=== PATIENT | female | born 1985 | race Caucasian/White ===

== ENCOUNTER 2018-08-30 09:27 | Emergency (ER) | payer MEDICAID ==
[~2018-08-30] VITALS: Ht 167.6 cm; Wt 87.2 kg
[~2018-08-30 09:27] MED LIST: ETON68IM3 SQ
[2018-08-30 09:36] VITALS: BP 131/85
[2018-08-30] MEDS ORDERED: ibuprofen tablet 400 MG TABLET PO ONE (10:10)
[2018-08-30] MEDS ORDERED: acetaminophen 325mg tablet PO ONE (10:10)
== END 2018-08-30 10:49 | disposition home or self-care (01) ==
LOC: ER 09:27
DX: M25.572 Pain in left ankle and joints of left foot (principal); G89.29 Other chronic pain; Z90.89 Acquired absence of other organs
CPT/HCPCS: 29515; 73610; 73630; 99284

== ENCOUNTER 2020-08-17 16:20 | Emergency (ER) | payer MEDICAID ==
[~2020-08-17] VITALS: Ht 167.6 cm; Wt 90.9 kg
[2020-08-17] MEDS ORDERED: morphine 4 MG/ML inj SYRINge IV ONE (17:00)
[2020-08-17] MEDS ORDERED: normal saline 1000ML IV soln IVB ONE (17:00)
[2020-08-17] MEDS ORDERED: ondansetron/PF 4mg/2ml inj IV ONE (17:00)
[2020-08-17 17:19] LABS: BASOPHILS # (AUTO) 0.1 X10'3 (0-0.2); BASOPHILS % (AUTO) 0.7 % (0-1); EOSINOPHILS # (AUTO) 0.2 X10'3 (0-0.9); EOSINOPHILS % (AUTO) 1.8 % (0-6); HEMATOCRIT 37.6 % (35.0-45.0); HEMOGLOBIN 12.8 g/dl (12.0-16.0); LYMPHOCYTES # (AUTO) 2.6 X10'3 (1.1-4.8); LYMPHOCYTES % (AUTO) 23.5 % (21-51); MEAN CORPUSCULAR HEMOGLOBIN 30.9 PG (27.0-31.0); MEAN CORPUSCULAR VOLUME 91.1 FL (78-98); MEAN PLATELET VOLUME 8.9 FL (7.4-10.4); MONOCYTES # (AUTO) 0.8 X10'3 (0-0.9); MONOCYTES % (AUTO) 7.4 % (2-12); NEUTROPHILS # (AUTO) 7.3 X10'3 (1.8-7.7); NEUTROPHILS % (AUTO) 66.6 % (42-75); PLATELET COUNT 315 X10'3 (140-440); RED BLOOD COUNT 4.13 X10'6 (4.20-5.60); RED CELL DISTRIBUTION WIDTH 13.7 % (11.5-14.5); WHITE BLOOD COUNT 10.9 X10'3 (4.5-11.0)
[2020-08-17] MEDS ORDERED: ketorolac tromethamine 15mg/ml inj. IV ONE (17:25)
[2020-08-17 17:36] LABS: ALANINE AMINOTRANSFERASE 29 U/L (12-78); ALBUMIN 3.4 G/DL (3.4-5.0); ALKALINE PHOSPHATASE 65 IU/L (46-116); ANION GAP 8 (8-16); ASPARTATE AMINO TRANSFERASE 16 U/L (10-37); BILIRUBIN,TOTAL 0.3 MG/DL (0.1-1.0); BLOOD UREA NITROGEN 9 MG/DL (7-18); BUN/CREATININE RATIO 12.5 (6.6-38.0); CALCIUM 8.4 MG/DL (8.5-10.1); CHLORIDE 105 MMOL/L (99-107); CREATININE 0.72 MG/DL (0.40-0.90); GLUCOSE 94 MG/DL (70-104); LIPASE 63 U/L (73-393); POTASSIUM 3.3 MMOL/L (3.5-5.1); SODIUM 138 MMOL/L (135-145); TOTAL CARBON DIOXIDE 24.7 MMOL/L (24-32); TOTAL PROTEIN 6.9 G/DL (6.4-8.2); eGFR > 90 ML/MIN
[2020-08-17] MEDS ORDERED: potassium Cl 20 mEq SR tablet PO STA (18:01)
[2020-08-17 18:06] LABS: CLARITY,URINE SLIGHTLY CLOUDY (Clear); COLOR,URINE STRAW (Yellow); GLUCOSE, URINE NEGATIVE (Neg); KETONES,URINE TRACE mg/dl (Neg); LEUKOCYTE ESTERASE ,URINE NEGATIVE (Neg); NITRITES, URINE NEGATIVE (Neg); OCCULT BLOOD,URINE LARGE (Neg); PROTEIN,URINE NEGATIVE (Neg); UROBILINOGEN,URINE 0.2 E.U/dL (0.2-1.0)
[2020-08-17 18:08] LABS: URINE HCG NEGATIVE (NEG)
[2020-08-17 18:14] LABS: UA COLLECTION TYPE CLN CATCH MIDSTREAM
[2020-08-17] MEDS ORDERED: HYDR-4383 PO (18:16)
[2020-08-17] MEDS ORDERED: LACT1CAP60 PO (18:16)
[2020-08-17] MEDS ORDERED: ONDA4TAB6 PO (18:16)
[2020-08-17] MEDS ORDERED: DICY10CA88 PO (18:16)
[2020-08-17 18:18] LABS: SQUAMOUS EPITHELIAL CELL,UR MODERATE /LPF (FEW)
[2020-08-17 18:19] LABS: BACTERIA,URINE FEW /HPF (Neg); RBC,URINE TNTC /HPF (0-2)
[2020-08-17 18:21] LABS: WBC,URINE 0-4 /HPF (0-4)
[2020-08-17 18:37] VITALS: BP 135/81
== END 2020-08-17 18:39 | disposition home or self-care (01) ==
LOC: ER 16:20
DX: R10.32 Left lower quadrant pain (principal); R50.9 Fever, unspecified; R06.02 Shortness of breath; G89.29 Other chronic pain; M54.9 Dorsalgia, unspecified; F17.200 Nicotine dependence, unspecified, uncomplicated; Z88.1 Allergy status to other antibiotic agents; Z79.899 Other long term (current) drug therapy
CPT/HCPCS: 36415; 80053; 81001; 81025; 83690; 85025; 96361; 96374; 96375; 99284; J1885; J2270; J2405; J7030